=== PATIENT | female | born 1955 | race Caucasian/White ===

== ENCOUNTER → 2019-10-11 11:59 | Outpatient (CLI) | payer MEDICARE, BC ==
[2019-10-11 12:53] LABS: BASOPHILS 0.8 % (0-2); EOSINOPHILS 7.9 % (0-7); HEMATOCRIT 29.5 % (36.0-48.0); HEMOGLOBIN 8.3 g/dL (12-16); LYMPHOCYTES 49.9 % (15-50); MCH 23.6 pg (26.0-34.0); MCHC 28.1 g/dL (31.0-37.0); MEAN PLATELET VOLUME 8.7 fL (7.4-10.4); MONOCYTES 10.9 % (2-11); NEUTROPHILS 30.5 % (40-80); PLATELET COUNT 500 10x3/uL (130-400); RBC 3.51 10x6/uL (4.00-5.40); RDW 16.3 % (11.5-14.5); WBC 3.9 10x3/uL (4.8-10.8)
== END | disposition home or self-care (01) ==
LOC: D.LAB 11:59
PROVIDERS: ATTEND Internal Medicine Gastroenterology
DX: D64.9 Anemia, unspecified (principal); K92.1 Melena

== ENCOUNTER → 2019-10-28 11:22 | Outpatient (CLI) | payer MEDICARE, BC | END | disposition home or self-care (01) | LOC: D.CT 11:00 | PROVIDERS: ATTEND Internal Medicine Gastroenterology | DX: K92.1 Melena (principal); D64.9 Anemia, unspecified; K92.0 Hematemesis ==

== ENCOUNTER → 2019-11-02 11:21 | Outpatient (CLI) | payer MEDICARE, BC | END | disposition home or self-care (01) | LOC: D.RAD 11:00 | PROVIDERS: ATTEND Internal Medicine Gastroenterology | DX: K44.9 Diaphragmatic hernia without obstruction or gangrene (principal); D64.9 Anemia, unspecified ==